=== PATIENT | male | born 1965 | race Two or more races ===

== ENCOUNTER → 2020-08-28 | Outpatient (CLI) | payer MEDICARE, MEDICAID | LOC: MSC 10:20 | PROVIDERS: ATTEND Anesthesiology | DX: M79.603 Pain in arm, unspecified (principal); M54.16 Radiculopathy, lumbar region; M40.299 Other kyphosis, site unspecified; G89.4 Chronic pain syndrome; M79.605 Pain in left leg; M79.604 Pain in right leg; M25.562 Pain in left knee; M25.561 Pain in right knee; Z79.891 Long term (current) use of opiate analgesic; Z79.1 Long term (current) use of non-steroidal anti-inflammatories (NSAID) ==